=== PATIENT | male | born 1995 | race Caucasian/White ===

== ENCOUNTER 2018-12-15 09:39 | Emergency (ER) | payer SELFPAY ==
[~2018-12-15] VITALS: Ht 165.1 cm; Wt 54.5 kg
[2018-12-15 09:48] VITALS: BP 121/71
[2018-12-15] MEDS ORDERED: ARIP15TA1 PO (09:58)
--- NOTE | 2018-12-15 10:02 | NUR ---
PT TO ED WITH CAREGIVER FOR LACERATION TO RT UPPER FOREHEAD X TODAY S/P FALL. 4CM LACERATION NOTED WITH CONTROLLED BLEEDING. PT IS APPROPRIATE WITH NO NEURO DEFECITS. ABLE TO RECALL EVENT. PER PARENT "PT NORMALLY TAKES 1/2 OF ABILIFY AT NIGHT, LAST NIGHT HE TOOK A WHOLE PILL" PT INTO BED, PENDING MD [place].
[2018-12-15] MEDS ORDERED: ACETAMINOPHEN EXTRA STRENGTH 500 MG TAB PO ONE (10:10)
[2018-12-15] MEDS ORDERED: LIDOCAINE/EPI 1% 1:100000 20 ML VIAL INJ ONE (10:10)
--- NOTE | 2018-12-15 11:40 | NUR ---
Ko ochoa in [facility] - 12/15/18 at 1204 by MEDRJJ BLOOD SENT TO LAB
[2018-12-15] MEDS ORDERED: NEOMYCIN/POLYMYXIN/BACITRACIN 0.9 GM/1 PKT TP STA (12:53)
[2018-12-15] MEDS ORDERED: NEOMYCIN/POLYMYXIN/BACITRACIN 0.9 GM/1 PKT TP ONE (13:03)
[2018-12-15 13:09] VITALS: BP 121/78
== END 2018-12-15 13:10 | disposition home or self-care (01) ==
LOC: MED 09:39
DX: S01.111A Laceration without foreign body of right eyelid and periocular area, initial encounter (principal); S01.81XA Laceration without foreign body of other part of head, initial encounter; R55 Syncope and collapse; Z79.899 Other long term (current) drug therapy; W45.8XXA Other foreign body or object entering through skin, initial encounter; Y93.01 Activity, walking, marching and hiking; Y92.090 Kitchen in other non-institutional residence as the place of occurrence of the external cause; Y99.8 Other external cause status
CPT/HCPCS: 12011; 12052; 70450; 93005; 99284; J2001

== ENCOUNTER 2018-12-20 09:30 | Emergency (ER) | payer SELFPAY ==
[~2018-12-20] VITALS: Ht 166.9 cm; Wt 54.4 kg
[~2018-12-20 09:30] MED LIST: ARIP15TA1 PO
--- NOTE | 2018-12-20 09:38 | NUR ---
PT AMBULATED TO ER BED 4
[2018-12-20 09:43] VITALS: BP 133/85
--- NOTE | 2018-12-20 09:43 | NUR ---
23M BIB MOTHER FOR SUTURE REMOVAL. VISITED [facility] 5 DAYS AGO, HAD SUTURE PLACED. PER MOTHER, PT HAS "13 STITCHES" EXTERNAL AND "4 STITCHES INSIDE" ON AND ABOVE RIGHT EYEBROW, AND "4 STITCHES UNDER CHIN". MOTHER STATES MD WHO PLACED SUTURES TOLD PATIENT TO COME BACK TO ED IN 5 DAYS FOR REMOVAL. WOUNDS ARE CLEAN AND DRY. DENIES PAIN, FEVER. NO OTHER COMPLAINTS. BEDRAIL UP X1, BED LOCKED AND LOW. ERMD TO [facility]. PMHX: AUTISM, ANXIETY MEDS: ANTIANXIETY MED ALL: NONE
--- NOTE | 2018-12-20 09:48 | NUR ---
DR. CONTRERAS BEDSIDE EVALUATING PT
--- NOTE | 2018-12-20 09:51 | NUR ---
Ko ochoa in ED - 12/20/[address] at [address] CONTRERAS AT BEDSIDE TO EVALUATE PATIENT.
[2018-12-20 10:29] VITALS: BP 133/85
--- NOTE | 2018-12-20 10:29 | NUR ---
Patient discharged with v/s stable. Written and verbal after care instructions given and explained. Patient instructed to f/u on sutures in 2 days. Patient and family member at bedside verbalized understanding. Ambulatory with steady gait. All questions addressed prior to discharge. Advised to follow up with PMD.
== END 2018-12-20 10:29 | disposition home or self-care (01) ==
LOC: MED 09:30
DX: S01.81XD Laceration without foreign body of other part of head, subsequent encounter (principal); F41.9 Anxiety disorder, unspecified; F84.0 Autistic disorder; Z79.899 Other long term (current) drug therapy; W18.39XD Other fall on same level, subsequent encounter
CPT/HCPCS: 99283

== ENCOUNTER 2018-12-23 21:15 | Emergency (ER) | payer SELFPAY ==
[~2018-12-23] VITALS: Ht 165.1 cm; Wt 65.8 kg
[2018-12-23 21:52] VITALS: BP 138/87
[2018-12-24] MEDS ORDERED: BACITRACIN OINT 500 UNITS/GM PKT TP ONE ×2 (00:25→00:37)
--- NOTE | 2018-12-24 00:31 | NUR ---
BACITRACIN AND BANDAID APPLIED.
--- NOTE | 2018-12-24 00:34 | NUR ---
Patient discharged with v/s stable. Written and verbal after care instructions given and explained. Patient verbalized understanding. Ambulatory with steady gait. All questions addressed prior to discharge. Advised to follow up with PMD.
[2018-12-24 00:35] VITALS: BP 140/80
== END 2018-12-24 00:35 | disposition home or self-care (01) ==
LOC: MED 21:15
DX: S01.111D Laceration without foreign body of right eyelid and periocular area, subsequent encounter (principal); F84.0 Autistic disorder; Z79.899 Other long term (current) drug therapy; X58.XXXD Exposure to other specified factors, subsequent encounter
CPT/HCPCS: 99282